=== PATIENT | male | born 1990 | race Caucasian/White ===

== ENCOUNTER 2021-08-31 21:00 | Emergency (ER) | payer BC, SELFPAY ==
[2021-08-31 21:08] VITALS: BP 113/54; BP 134/80; PULSE 80; RESP 18; TEMP 37; O2SAT 99; BMI 25.8
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
[2021-08-31 23:56] VITALS: BP 124/76; PULSE 56; RESP 15; TEMP 37.1; O2SAT 97
[2021-09-01 02:00] VITALS: RESP 14
== END 2021-09-01 04:09 | disposition home or self-care (01) ==
PROVIDERS: Emergency Provider Student in an Organized Health Care Education/Training Program
DX: Z04.1 Encounter for examination and observation following transport accident (principal); F10.920 Alcohol use, unspecified with intoxication, uncomplicated; Y90.9 Presence of alcohol in blood, level not specified
CPT/HCPCS: 99285

== ENCOUNTER 2022-09-13 09:46 | Emergency (ER) | payer OTHER, BC, SELFPAY ==
--- NOTE | ~2022-09-13 | XR_ITS ---
EXAMINATION: XR ELBOW, LEFT CLINICAL INFORMATION: Trauma, pain COMPARISON: None TECHNIQUE: AP, lateral, and oblique views of the left elbow. FINDINGS: There is no acute fracture, dislocation, or elbow capsular effusion. There are 2 orthopedic screws in the distal humerus medial side. Hardware is intact. No osteolysis. There is a corticated ossicle just distal to medial epicondyle, presumably chronic finding given the corticated margins. The articular surfaces appear intact. There is small olecranon spur. XR/XR elbow LT min 3V IMPRESSION: 1. No acute fracture, dislocation, or capsular effusion. 2. Orthopedic screws distal humerus. Hardware intact. No osteolysis. 3. Corticated ossicle just distal to medial epicondyle, presumably chronic.
[2022-09-13 09:47] VITALS: BP 128/84; PULSE 72; RESP 17; TEMP 22.2; O2SAT 100; BMI 25.8
--- NOTE | 2022-09-13 11:02 | ED_ITS ---
HPI - Extremity Problem General Chief complaint: Extremity Injury, Upper Stated complaint: L hand pain/work related Time Seen by Provider: 09/13/22 10:58 Source: patient Limitations: no limitations History of Present Illness HPI Narrative: 32-year-old male presents to the ER complaining of left elbow pain after lifting a very heavy couch at work. Pain is in the medial aspect of the left elbow. Patient a prior injury to that elbow with hardware placement. Pain increases with range of motion or palpation. Pain is 7/10. Symptoms are [id number] no other complaints at this time. No other injuries. Related Data Previous Rx's Medication Instructions Recorded ibuprofen 600 mg tablet 600 mg PO TID PRN pain #30 tabs 09/13/22 Allergies Allergy/AdvReac Type Severity Reaction Status Date / Time No Known Allergies Allergy Verified 08/31/21 21:11 Review of Systems Review of Systems: Constitutional : No Weight loss, No Fever, No Chill ENT/Mouth : No sore throat Cardiovascular : denies chest pain shortness of breath Respiratory : no shortness of breath Gastrointestinal : No Nausea, No Vomiting, No Diarrhea Musculoskeletal : positive left elbow pain Neuro : No Weakness, No Numbness, No Paresthesias, No Loss of Consciousness, No Dizziness, No Headache Psych : No Anxiety/Panic, No Depression, No SI/HI/AH/VH, No Social Issues, Heme/Lymph: No Bruising, No Bleeding,No Lymphadenopathy Endocrine : No Polyuria, No Polydipsia, No Temperature Intolerance PMF Past Medical History Attestation statement: The following information was validated with the patient. Medical History No known health problems Surgical History No history of previous surgery Social History Social History Alcohol intake: current Alcohol intake frequency: 3 or more drinks per day Alcohol type: beer Patient Tobacco Use Status: Tobacco use Unknown Advance Directives: No Advance Directives Information Provided: No Physical Exam Vital Signs: Vital Signs: Last Vital Signs Temp 72 F L 09/13/22 09:47 Pulse 72 09/13/22 09:47 Resp 17 09/13/22 09:47 BP 128/84 09/13/22 09:47 Pulse Ox 100 09/13/22 09:47 O2 Del Method 09/13/22 09:47 BMI result Body Mass Index 25.8 VITAL SIGNS: Reviewed. GENERAL: Well developed, well nourished, in no acute distress. HEAD: Normocephalic/atraumatic EYES: PERRLA, EOMI intact without pain, no nystagmus NOSE: Nares patent bilateral OROPHARYNX: no oral lesions noted, posterior pharynx clear NECK: Supple, no adenopathy MUSCULOSKELETAL: medial left elbow epicondyle is tender pain increases with range of motion no deformity pulses sensation intact SKIN: left elbow medial aspect scar from prior surgery NEUROLOGIC: alert oriented x3 speech is intact no focal deficit Course Course Course Narrative: Left elbow fracture Left elbow contusion Left elbow sprain Epicondylitis of the lateral epicondyle Hardware displacement Medical Decision Making Medical Decision Making MDM Narrative: 32-year-old male who presents to the ER with left elbow pain status post moving heavy object that is dry. Patient has a history of prior surgery to the left elbow. Images of the left elbow pending at this time. Fracture versus epicondylitis versus hardware displacement. 13:31 left elbow x-rays negative hardware is in place rest ice elevation symptoms likely secondary to a left elbow strain. Radiology Impression Radiologist Impression: [address] [address] XRay Report Signed Patient: Jaxson Bo MR#: [id number] : 1990 Acct:[id number] Age/Sex: 32 / M ADM Date: 09/13/22 Loc: HO.ED Attending Dr: Ordering Physician: Alvin Crook Date of Service: 09/13/22 Procedure(s): XR elbow LT min 3V Accession Number(s): [id number] cc: Alvin Crook ~ EXAMINATION: XR ELBOW, LEFT CLINICAL INFORMATION: Trauma, pain? COMPARISON: None? TECHNIQUE: AP, lateral, and oblique views of the left elbow. FINDINGS: There is no acute fracture, dislocation, or elbow capsular effusion. There are 2 orthopedic screws in the distal humerus medial side. Hardware is intact. No osteolysis. There is a corticated ossicle just distal to medial epicondyle, presumably chronic finding given the corticated margins. The articular surfaces appear intact. There is small olecranon spur.? XR/XR elbow LT min 3V IMPRESSION: 1. No acute fracture, dislocation, or capsular effusion. 2. Orthopedic screws distal humerus. Hardware intact. No osteolysis. 3. Corticated ossicle just distal to medial epicondyle, presumably chronic. ? Dictated By: Rory Amor MD Signed By: <Electronically signed by Rory Amor MD in OV> 09/13/22 1308 DD/ 1135 TD/TT:? Equine Science Instructor: LEWIS Discharge Plan Discharge Clinical Impression: Elbow injury Patient Disposition: Home, Self-Care Instructions: Elbow Sprain (ED) Additional Instructions: Your x-ray is negative hardware is in place rest ice elevation Prescriptions: New ibuprofen 600 mg tablet 600 mg PO TID PRN (Reason: pain) Qty: 30 0RF Stand Alone Forms: Work/School Release Print Language: Zimbabwean
[2022-09-13 13:31] VITALS: BP 118/58; PULSE 61; RESP 16; TEMP 36.5; O2SAT 99
== END 2022-09-13 13:46 | disposition home or self-care (01) ==
PROVIDERS: Emergency Provider Emergency Medicine
DX: S53.402A Unspecified sprain of left elbow, initial encounter (principal); X50.0XXA Overexertion from strenuous movement or load, initial encounter; X50.3XXA Overexertion from repetitive movements, initial encounter; Y93.9 Activity, unspecified; Y92.9 Unspecified place or not applicable; Y99.0 Civilian activity done for income or pay
CPT/HCPCS: 73080; 99282; 99283

== ENCOUNTER 2023-07-24 10:35 | Emergency (ER) | payer OTHER, SELFPAY ==
--- NOTE | ~2023-07-24 | XR_ITS ---
EXAMINATION: XR CHEST CLINICAL INFORMATION: Cough. COMPARISON: None available. TECHNIQUE: 2 views of the chest were obtained. FINDINGS: No significant abnormality is noted involving the heart, lungs, mediastinum, bony thorax or soft tissues. XR/XR chest 2V IMPRESSION: Unremarkable examination.
[2023-07-24 10:45] VITALS: BP 119/64; PULSE 62; RESP 16; TEMP 36.4; O2SAT 98; BMI 23.5
[2023-07-24 12:32] LABS: Influenza A PCR NEGATIVE (Negative); Influenza B PCR NEGATIVE (Negative); Resp Syncy Virus RNA Qual PCR NEGATIVE (Negative); SARS COV2 PCR INHOUSE POSITIVE (Negative)
--- NOTE | 2023-07-24 12:43 | ED_ITS ---
HPI - General Adult General Chief complaint: Upper Respiratory Symptoms Stated complaint: coughing blood in phlem Time Seen by Provider: 07/24/23 13:06 Source: patient and interpreter deaf Mode of arrival: ambulatory Limitations: no limitations History of Present Illness HPI narrative: 32 year old male with no significant pmhx presents to the ED today with a complaint of sore throat and productive cough x3 weeks. Reports noticing blood streaks in his sputum yesterday. Has not been taking anything at home for cough. Denies difficulty or pain with swallowing. Has not been taking anything for this at home. No known sick contacts. No recent travel or long car rides. Denies fever, chills, congestion, shortness of breath, chest pain, wheezing, abdominal pain, nausea/vomiting, constipation, diarrhea, dysuria or hematuria. Related Data Previous Rx's Medication Instructions Recorded ibuprofen 600 mg tablet 600 mg PO TID PRN pain #30 tabs 09/13/22 benzonatate 200 mg capsule 200 mg PO BID PRN cough #14 caps 07/24/23 Allergies Allergy/AdvReac Type Severity Reaction Status Date / Time No Known Allergies Allergy Verified 08/31/21 21:11 Review of Systems Review of Systems: Constitutional: No fever, chills, fatigue, night sweats, weight changes ENT/Mouth: No ear pain, hearing loss, nasal congestion, sinus pain, rhinorrhea, sore throat Eyes: No eye pain, swelling, redness, vision changes, discharge Cardio: No chest pain, palpitations, CALDERON, orthopnea, peripheral edema Pulm: No SOB, +cough, +sputum, No wheezing, dyspnea, hemoptysis GI: No nausea, vomiting, hematemesis, abdominal pain, diarrhea, constipation, hematochezia, melena : No irregular bleeding, dysuria, frequency, urgency, hesitancy, hematuria, flank pain MSK: No back pain, neck pain, joint pain, myalgias Skin: No lesions, rashes Neuro: No weakness, numbness, paresthesias, LOC, dizziness, headache All other systems reviewed and are negative. [facility] Past Medical History Attestation statement: The following information was validated with the patient. Source: old records reviewed and nursing notes reviewed Medical History No known health problems Surgical History No history of previous surgery Social History Social History Alcohol intake: current Alcohol intake frequency: 3 or more drinks per day Alcohol type: beer Patient Tobacco Use Status: Tobacco use Unknown Advance Directives: No Advance Directives Information Provided: Yes Physical Exam ED Vital Signs: Vital Signs - 24 hr 07/24/23 10:45 Temperature 97.5 F Pulse Rate 62 Respiratory Rate 16 Blood Pressure 119/64 Pulse Oximetry 98 Oxygen Delivery Method Room Air BMI result Body Mass Index 23.5 Vital signs stable, afebrile, not hypoxic Const General: cooperative, healthy appearing, comfortable, no acute distress, alert and awake Orientation/consciousness: patient oriented x3 Limitations: no limitations HENMT Other: + posterior oropharynx without erythema or edema. No tonsillar exudates. Uvula midline. No peritonsillar masses. Controlling secretions and speaking complete sentences. Head: Yes normal to inspection Ears: hearing grossly normal bilaterally, external ears normal, TM's normal bilaterally, EAC's normal, mastoids normal and no periauricular adenopathy General nose exam: Normal external nose present and Normal nares present Mouth: Normal oral and palatal mucosa present Eyes General: appearance normal, both eyes and all related structures Conjunctivae: conjunctivae normal Sclerae: sclerae normal Pupils: Equal, round and reactive pupils present Neck Neck: Yes normal visual inspection, Yes full ROM, Yes no lymphadenopathy and Yes no meningeal signs Resp Effort & Inspection: normal respiratory effort Auscultation: clear to auscultation bilaterally and no wheezes Cardio Rate: regular rate Rhythm: regular rhythm Peripheral pulses: radial pulses present GI Inspection: Yes normal to inspection Palpation (GI): Soft to palpation, nontender, no guarding and no hepatosplenomegaly Skin General skin exam: no rashes or lesions noted Neuro General: patient oriented x3, gait normal, moves all extremities and no meningeal signs Cranial nerves: Yes Equal, round and reactive pupils present Extrem General: Yes normal to inspection and Yes full ROM Course Course Course Narrative: 1325-- serology positive for COVID. Negative for RSV and flu. Awaiting chest x-ray. 1500-- chest x-ray unremarkable. Patient's symptoms are consistent with COVID. informed patient of positive COVID results and unremarkable chest x-ray. Blood- streaked sputum likely secondary to airway irritation from coughing. Advised him to isloate for 5 days and wear mask. I will send [place] to his pharmacy for his cough. Discussed strict return precautions and worrisome signs and symptoms. All questions answered at this time. Patient is agreeable disposition and stable for discharge. Medical Decision Making Medical Decision Making [facility] Narrative: 32 year old male with no significant pmhx presents to the emergency department today with a complaint of sore throat and productive cough x3 weeks. Vital signs stable, afebrile, not hypoxic. Patient is nontoxic appearing and in no acute distress. Bilateral EACs and TMs WNL. Posterior oropharynx without erythema or edema, no tonsillar exudates, uvula midline, no peritonsillar masses, controlling secretions and speaking complete sentences. No lymphadenopathy. Lungs CTA bilaterally, no wheezes. Abdomen soft, nontender, nondistended, no rebound tenderness or guarding. Normoactive bowel sounds x4. Clinical concern for viral syndrome vs pneumonia vs bronchitis. Unlikely strep throat, mono, MANAGER BUSINESS INFORMATION, retropharyngeal abscess, epiglottitis, otitis media/externa, mastoiditis, lung abscess, PE. Differential Diagnosis Differential Diagnoses: The differential diagnosis associated with the presentation includes As above. Admission/Observation Not indicated. Lab Data [facility] Lab Attestation statement: I reviewed the patient's lab results. As above. Labs: Lab Results 07/24/23 Range/Units 11:19 Influenza Type A (PCR) NEGATIVE (Negative) Influenza Type B (PCR) NEGATIVE (Negative) RSV RNA Qual (PCR) NEGATIVE (Negative) SARS-CoV-2 RNA (RT-PCR) POSITIVE A (Negative) Independent Interpretation I performed an independent interpretation of an: Plain X-Ray Interpretation: Chest x-ray without consolidation or infiltrate to suggest pneumonia, agree with radiologist's interpretation. Radiology Impression Discussion of test interpretation with radiology: I have reviewed the radiologist's reading. Radiologist Impression: XR chest 2V IMPRESSION: Unremarkable examination. External Record Review External record reviewed: Inpatient record Prescription Management I considered prescription management with: Other (Antitussive) Critical Care Time Critical Care Time Critical Care Time: No Discharge Plan Discharge Clinical Impression: COVID Patient Disposition: Home, Self-Care Instructions: COVID-19 (Coronavirus Disease 2019) (ED) Additional Instructions: Your chest xray was normal. Today you tested positive for COVID-19.? Take Ibuprofen or Tylenol as needed for fevers or body aches.? [place] have been sent to your pharmacy. Take these up to 2 times a day for cough. Quarantine for 5 days and ensure you wear a mask. After 5 days you should wear a mask for 5 days after that.? Practice social distancing and good hand hygiene. Drink plenty of fluids. Follow-up with your primary care provider this week. Return to the emergency department with new or worsening symptoms. In case of emergency call 911 You can purchase a pulse oximeter from your local pharmacy or grocery store, and monitor your oxygen saturation if it goes below 94% you should return to the emergency department for further evaluation. Tu radiograf?a de t?rax fue normal. Hoy diste positivo por COVID-19. [place] ibuprofeno o Tylenol seg?n sea necesario para la fiebre o los davey corporales. [place] jett sido enviados a garcia farmacia. T?melos hasta 2 veces al d?a p barry la tos. [place]ong[place] en cuarentena manish 5 d?as y aseg?rese de usar mallika m?scara. Despu?s de 5 d?as debes usar mallika mascarilla manish los 5 d?as siguientes. Practique el distanciamiento social y mallika buena higiene de autumn. Beber mucho l?quido. [place] un seguimiento con garcia proveedor de atenci?n primaria esta semana. Regrese al departamento de emergencias si los s?ntomas son nuevos o empeoran. En jeannine de emergencia llame al 911. Puede comprar un ox?metro de pulso en garcia farmacia o supermercado local y controlar garcia saturaci?n de ox?marina. Si desciende por debajo del 94%, debe regresar al departamento de emergencias para mallika evaluaci?n adicional. Prescriptions: New benzonatate 200 mg capsule 200 mg PO BID PRN (Reason: cough) Qty: 14 0RF No Action ibuprofen 600 mg tablet 600 mg PO TID PRN (Reason: pain) Qty: 30 0RF Referrals: [facility] [place] [facility] [Provider Group] Stand Alone Forms: Work/School Release Print Language: Upper Sorbian
== END 2023-07-24 15:38 | disposition home or self-care (01) ==
PROVIDERS: Emergency Provider Student in an Organized Health Care Education/Training Program
DX: U07.1 COVID-19 (principal); R05.9 Cough, unspecified
CPT/HCPCS: 0241U; 71046; 99283; 99284

== ENCOUNTER 2024-05-06 23:10 | Emergency (ER) | payer SELFPAY ==
--- NOTE | ~2024-05-06 | CT_ITS ---
EXAMINATION: CT ABDOMEN AND PELVIS WITH CONTRAST CLINICAL INFORMATION: Left-sided pain. COMPARISON: None available. TECHNIQUE: Multidetector volumetric images were obtained from the superior aspect of the liver through the pubic symphysis following administration 85 mL of Omnipaque 350 intravenous contrast. Sagittal and coronal reformatted images were obtained on the 0.5 mm distal left ureteric calculus. Workstation. Oral contrast: No This CT examination was performed using dose optimization techniques as appropriate, variously including the following: *Automated exposure control *Adjustment of mA and/or kV according to patient size (this includes techniques or standardized protocols for targeted exams where dose is matched to indication/reason for exam; i.e. extremities or head) *Use of iterative reconstruction technique DLP: 422 mGy-cm FINDINGS: LUNG BASES: The visualized lung bases are unremarkable. LIVER, GALLBLADDER, AND BILIARY TREE: The liver is normal in size, shape, and attenuation. No focal hepatic lesion or biliary ductal dilatation is present. The gallbladder is unremarkable with no evidence of radiopaque gallstones, gallbladder wall thickening, or obvious pericholecystic inflammatory changes. PANCREAS: Unremarkable. SPLEEN: Unremarkable. ADRENAL GLANDS: Unremarkable. KIDNEYS AND URETERS: The kidneys are normal in size, shape, and attenuation. There is a nonobstructing 2 mm calculus upper pole left kidney. There is mild left hydronephrosis and hydroureter extending into the pelvis to the level of a 2.5 mm distal left ureteric calculus. BLADDER: Unremarkable. GASTROINTESTINAL TRACT: The small and large bowel are unremarkable. The appendix is unremarkable. ABDOMINAL WALL: No significant hernia is appreciated. LYMPH NODES: Normal. VASCULAR: Unremarkable. PELVIC VISCERA: Unremarkable. OSSEOUS STRUCTURES: Unremarkable. CT/CT abdomen pelvis w IV con IMPRESSION: 1. Mild left hydronephrosis and hydroureter extending into the pelvis to the level of a 2.5 mm distal left ureteric calculus. 2. Nonobstructing 2 mm calculus upper pole left kidney. Fleischner guidelines were followed. Electronically signed by: Bib Alves MD 05/07/2024 03:43 AM EDT
[2024-05-06 23:16] VITALS: BP 98/54; PULSE 50; RESP 20; TEMP 36.4; O2SAT 100; BMI 25.1
[2024-05-06 23:35] LABS: MANUAL DIFF FLAG NO
[2024-05-06 23:36] LABS: Basophils Absolute Auto 0.1 X10*3/uL (0.0-0.2); Basophils Percent Auto 0.4 % (0-2); Eosinophils Absolute Auto 0.1 X10*3/uL (0.0-0.4); Eosinophils Percent Auto 0.4 % (0-4); Hematocrit 41.8 % (42.0-52.0); Hemoglobin 14.6 g/dl (14.0-18.0); Imm Gran Abs Auto 0.05 X10*3/uL (0.00-0.03); Imm Gran Pct Auto 0.4 % (0.0-0.4); Lymphocytes Absolute Auto 2.8 X10*3/uL (1.2-4.9); Lymphocytes Percent Auto 20.5 % (20-40); Mean Corpuscular HGB Conc 34.9 g/dl (31.0-36.0); Mean Corpuscular Hemoglobin 28.1 pg (27.0-33.0); Mean Corpuscular Volume 80.4 fL (80.0-98.0); Mean Platelet Volume 8.9 fL (9.4-12.4); Monocytes Absolute Auto 0.5 X10*3/uL (0.1-1.2); Monocytes Percent Auto 3.8 % (2-11); Neutrophils Absolute Auto 10.3 x10*3/uL (2.0-8.3); Neutrophils Percent Auto 74.5 % (45-73); Platelet Count 299 X10*3/uL (160-400); Red Cell Distribution Width 13.5 % (11.0-16.0); White Blood Count 13.8 X10*3/uL (4.8-10.8)
[2024-05-06 23:50] LABS: Alanine Aminotransferase 15 U/L (0-40); Albumin Level 4.7 g/dL (3.5-5.0); Alkaline Phosphatase 65 U/L (39-117); Anion Gap 14 (12-20); Aspartate Amino Transferase 19 U/L (5-37); Bilirubin Total 0.5 mg/dL (0.0-1.0); Blood Urea Nitrogen 25 mg/dL (9-16); Calcium 9.8 mg/dL (8.4-10.2); Carbon Dioxide 23 mmol/L (22-29); Chloride 105 mmol/L (96-108); Creatinine Clr Calc Pharmacy 98.1; Estimated Glomerular Filt Rate > 60; Glucose Random 164 mg/dL (60-115); Lipase 17 U/L (8-78); Potassium 3.5 mmol/L (3.3-5.1); Sodium 138 mmol/L (135-145); Total Protein 7.8 g/dL (6.5-8.0)
--- NOTE | 2024-05-07 01:23 | ED.GENADULT ---
HPI - General Adult General Chief complaint: Abdominal Pain Stated complaint: lower back pain, stomach pain Time Seen by Provider: 05/07/24 01:20 History of Present Illness ED Provider: Rupinder ABEL narrative: The patient is an ordinarily healthy 33-year-old male who has no history of abdominal surgeries. He says that he had been fine yesterday and had gone to the dentist without any issues. At around 21:00 earlier this evening however he developed left-sided back and abdominal pain which was associated with nausea and vomiting and which has now become generalized abdominal pain. No fevers. No diarrhea. He has never had a syndrome like this before. Related Data Previous Rx's ?Medication ?Instructions ?Recorded ibuprofen 600 mg tablet 600 mg PO TID PRN pain #30 tabs 09/13/22 benzonatate 200 mg capsule 200 mg PO BID PRN cough #14 caps 07/24/23 ibuprofen 600 mg tablet 600 mg PO Q6H PRN pain #14 tabs 05/07/24 morphine 15 mg immediate release 15 mg PO Q6H PRN pain #8 tabs 05/07/24 tablet ondansetron 4 mg disintegrating 4 mg PO Q6H PRN nausea and 05/07/24 tablet vomiting #10 tabs tamsulosin 0.4 mg capsule 0.4 mg PO BEDTIME #5 caps 05/07/24 Allergies Allergy/AdvReac Type Severity Reaction Status Date / Time No Known Allergies Allergy Verified 05/06/24 23:20 Review of Systems Review of Systems: Yes all other systems are reviewed and are negative [facility] Past Medical History Medical History No known health problems Surgical History No history of previous surgery Social History Social History Alcohol intake: current Alcohol intake frequency: 3 or more drinks per day Alcohol type: beer Patient Tobacco Use Status: Tobacco use Unknown Smoked in Last 30 Days: No Advance Directives: No Advance Directives Information Provided: No Physical Exam ED Vital Signs: Vital Signs - 24 hr 05/06/24 23:16 05/07/24 02:00 05/07/24 04:00 Temperature 97.6 F 96.8 F 97.3 F Pulse Rate 50 67 70 Respiratory Rate 20 16 16 Blood Pressure 98/54 L 132/79 130/80 Pulse Oximetry 100 100 99 Oxygen Delivery Method Room Air Room Air Room Air 05/07/24 06:22 Temperature 97.3 F Pulse Rate 70 Respiratory Rate 16 Blood Pressure 130/80 Pulse Oximetry 99 Oxygen Delivery Method Room Air BMI result Body Mass Index 25.1 Const Other: The patient looks as though he is an ordinarily healthy 33-year-old. He looks as if he does not feel very well. HENMT Other: Face is symmetrical. Mucous membranes moist. Eyes General: appearance normal, both eyes and all related structures Neck Other: Moving his neck easily Resp Effort & Inspection: normal respiratory effort Auscultation: clear to auscultation bilaterally Cardio Rate: regular rate Rhythm: regular rhythm Heart sounds: S1 normal heart sound present and S2 normal heart sound present GI Other: Patient has generalized mid abdominal tenderness. He seems fairly tender but does not seem to have focal tenderness in either the right lower or left lower quadrants. No definite Romero's sign. Back/Spine/Pelvis Other: No CVA percussion tenderness on either flank. Skin Other: The skin was pale and slightly sweaty Neuro Other: The patient is awake and alert. He looks as if he does not feel very well. However his mental status is clear, cranial nerves are grossly intact, and he moves his extremities normally. He seems neurologically intact. Extrem Other: No peripheral edema Medications Administered Discontinued Medications Generic Name Dose Route Start Last Admin Trade Name Freq PRN Reason Stop Dose Admin Droperidol 0.625 mg 05/07/24 02:10 05/07/24 02:31 Droperidol 5 Mg/2 Ml Vial IVPUSH 05/07/24 02:11 0.625 mg ONCE ONE Administration Sodium Chloride 1,000 mls @ 999 mls/hr 05/07/24 02:15 05/07/24 04:04 Ns IV 05/07/24 03:15 Infused .Q1H1M VARINDER Infusion Iohexol 85 ml 05/07/24 02:23 05/07/24 02:24 Iohexol 350 Mg/Ml 100 Ml Infus..Btl IV 05/07/24 02:24 85 ml ONCE ONE Administration Ketorolac Tromethamine 10 mg 05/07/24 02:09 05/07/24 02:31 Ketorolac Tromethamine 15 Mg/Ml Vial IVPUSH 05/07/24 02:10 10 mg ONCE ONE Administration Tamsulosin HCl 0.4 mg 05/07/24 04:23 05/07/24 04:30 Tamsulosin Hcl 0.4 Mg Capsule PO 05/07/24 04:24 0.4 mg ONCE ONE Administration Medical Decision Making Medical Decision Making [facility] Narrative: The patient is a 33-year-old male who is generally in good health who arrived presenting with left flank pain and nausea and vomiting. At the time that I examined him he seemed to indicate that the pain had become generalized abdominal pain and I also was surprised that he had no CVA percussion tenderness on exam. He had a mildly elevated white blood count and he looks quite uncomfortable so I obtained a CT scan of the abdomen and pelvis. The CT of the abdomen and pelvis shows a 2.5 mm left ureteral stone in the mid ureter. This is consistent with the patient's description of left flank pain. He also has blood on his urinalysis. The patient improved with ketorolac and looked well enough for discharge. He has never had a kidney stone before. He will be sent prescriptions for ibuprofen, ondansetron, morphine, and tamsulosin. He is given the contact information for the urology office. He should return if worse. Lab Data 05/06/24 23:30 05/06/24 23:30 Labs: Lab Results 05/06/24 05/07/24 Range/Units 23:30 01:44 WBC 13.8 H (4.8-10.8) X10*3/uL RBC 5.20 (4.60-5.80) X10*6/uL Hgb 14.6 (14.0-18.0) g/dl Hct 41.8 L (42.0-52.0) % MCV 80.4 (80.0-98.0) fL MCH 28.1 (27.0-33.0) pg MCHC 34.9 (31.0-36.0) g/dl RDW 13.5 (11.0-16.0) % Plt Count 299 (160-400) X10*3/uL MPV 8.9 L (9.4-12.4) fL Immature Gran % (Auto) 0.4 (0.0-0.4) % Neut % (Auto) 74.5 H (45-73) % Lymph % (Auto) 20.5 (20-40) % [place] % (Auto) 3.8 (2-11) % Eos % (Auto) 0.4 (0-4) % Baso % (Auto) 0.4 (0-2) % Lymph # (Auto) 2.8 (1.2-4.9) X10*3/uL [place] # (Auto) 0.5 (0.1-1.2) X10*3/uL Eos # (Auto) 0.1 (0.0-0.4) X10*3/uL Baso # (Auto) 0.1 (0.0-0.2) X10*3/uL Abs Immat Gran (auto) 0.05 H (0.00-0.03) X10*3/uL Absolute Neuts (auto) 10.3 H (2.0-8.3) x10*3/uL Absolute Nucleated RBC 0.000 (0.0-0.012) X10*3/uL Nucleated RBC % (auto) 0.0 (0.0-0.2) /100WBC Sodium 138 (135-145) mmol/L Potassium 3.5 (3.3-5.1) mmol/L Chloride 105 (96-108) mmol/L Carbon Dioxide 23 (22-29) mmol/L Anion Gap 14 (12-20) BUN 25 H (9-16) mg/dL Creatinine 1.02 (0.5-1.4) mg/dL Estim Creat Clear Calc 98.1 Estimated GFR > 60 Random Glucose 164 H (60-115) mg/dL Calcium 9.8 (8.4-10.2) mg/dL Total Bilirubin 0.5 (0.0-1.0) mg/dL AST 19 (5-37) U/L ALT 15 (0-40) U/L Alkaline Phosphatase 65 (39-117) U/L C-Reactive Protein 0.14 (< or = 0.50) mg/dL Total Protein 7.8 (6.5-8.0) g/dL Albumin 4.7 (3.5-5.0) g/dL Lipase 17 (8-78) U/L Urine Color Yellow Urine Appearance Clear Urine pH 5.5 (5.0-9.0) Ur Specific [place] >= 1.030 H (1.005-1.025) Urine Protein Trace (Neg-Trace) mg/dL Urine Glucose (UA) Negative (Negative) mg/dL Urine Ketones 15 (Negative) mg/dL Urine Blood Large (3+) H (Negative) Urine Nitrite Negative (Negative) Ur Leukocyte Esterase Trace H (Negative) Urine RBC >20 H (0-2) /HPF Urine WBC 0-5 (0-5) /HPF Ur Squamous Epith Cells 0-2 (0-2) /HPF Urine Bacteria None Seen (None Seen) Hyaline Casts 0-2 (0-2) /LPF Discharge Plan Discharge Clinical Impression: Ureteral colic, Left ureteral stone Patient Disposition: Home, Self-Care Instructions: Renal Colic (ED), Ureteral Stones (ED) Additional Instructions: You have a 2.5 mm kidney stone in your left ureter. I have sent a prescription for ibuprofen which you may use as needed for pain. You may take this every 6 hours as needed. I have sent a prescription for ondansetron which you may use every 6 hours as needed for nausea. I have also sent a prescription for morphine which you may use if you need additional pain medication. You may take the morphine every 6 hours as well. There is a prescription for tamsulosin which you can take at bedtime. This medication can help the ureters relax to allow the passage of the stone. You have been given a work note to return to work on Friday. My hope is that by Friday this stone will have passed into your bladder and it will no longer be bothering you. I have also given you the contact information for the urology office. My hope is they will be able to see you next week for additional advice and management if you are still having any symptoms. If at any point you are significantly worse please return to the emergency department. Prescriptions: New ibuprofen 600 mg tablet 600 mg PO Q6H PRN (Reason: pain) Qty: 14 0RF ondansetron 4 mg tablet,disintegrating 4 mg PO Q6H PRN (Reason: nausea and vomiting) Qty: 10 0RF tamsulosin 0.4 mg capsule 0.4 mg PO BEDTIME Qty: 5 0RF morphine 15 mg tablet 15 mg PO Q6H PRN (Reason: pain) Qty: 8 0RF Rx Instructions: Partial Fill upon patient request. No Action ibuprofen 600 mg tablet 600 mg PO TID PRN (Reason: pain) Qty: 30 0RF benzonatate 200 mg capsule 200 mg PO BID PRN (Reason: cough) Qty: 14 0RF Referrals: [facility] [Provider Group] (Left ureteral stone) Stand Alone Forms: Work/School Release Interventions: ED Discharge Assessment Last Done: 05/07/24 06:22 Discharge Date/Time: 05/07/24 04:45 Print Language: Hebrew
[2024-05-07 01:51] LABS: Appearance Urine Clear; Color Urine Yellow; Glucose Urine UA Negative (Negative); Leukocyte Esterase Urine Trace (Negative); Nitrite Urine Negative (Negative); PH 5.5 (5.0-9.0); Specific Gravity - Urine >= 1.030 (1.005-1.025); UMIC TRIGGER UACC YES; Urine Blood Large (3+) (Negative); Urine Ketones 15 mg/dL (Negative); Urine Protein Trace mg/dL (Neg-Trace)
[2024-05-07 01:56] LABS: Bacteria Urine None Seen (None Seen); Hyaline Casts Urine 0-2 /LPF (0-2); RBC Urine >20 /HPF (0-2); Squamous Epithelial Cell Urine 0-2 /HPF (0-2); WBC Urine 0-5 /HPF (0-5)
[2024-05-07 02:00] VITALS: BP 132/79; PULSE 67; RESP 16; TEMP 36; O2SAT 100
[2024-05-07] MEDS: iohexoL 350 MG/ML 100 ML INFUS..BTL 85 ML IV (02:24)
[2024-05-07 02:28] LABS: C Reactive Protein 0.14 mg/dL (< or = 0.50)
[2024-05-07] MEDS: Ketorolac Tromethamine 15 MG/ML VIAL 10 MG IVPUSH (02:31)
[2024-05-07] MEDS: droPERidol 5 MG/2 ML VIAL 0.625 MG IVPUSH (02:31)
[2024-05-07] MEDS: 0.9 % Sodium Chloride 1,000 ML 999 ML IV (02:32)
[2024-05-07 04:00] VITALS: BP 130/80; PULSE 70; RESP 16; TEMP 36.3; O2SAT 99
[2024-05-07] MEDS: Tamsulosin HCL 0.4 MG CAPSULE PO (04:30)
[2024-05-07 06:22] VITALS: BP 130/80; PULSE 70; RESP 16; TEMP 36.3; O2SAT 99
== END 2024-05-07 04:45 | disposition home or self-care (01) ==
PROVIDERS: Emergency Provider Emergency Medicine
DX: N13.2 Hydronephrosis with renal and ureteral calculous obstruction (principal)
CPT/HCPCS: 36415; 74177; 80053; 81001; 83690; 85025; 86140; 96361; 96374; 96375; 99284; 99285; J1790; J1885; Q9967